=== PATIENT | male | born 1970 | race Hispanic/Latino ===

== ENCOUNTER 2016-09-15 06:24 | Emergency (ER) | payer SELFPAY ==
[~2016-09-15] VITALS: Ht 172.7 cm; Wt 120.5 kg
[2016-09-15 06:45] LABS: HEMATOCRIT 48.7 % (39.0-50.0); HEMOGLOBIN 16.1 g/dl (14.0-18.0); IMMATURE GRANULOCYTES 0.5 % (0.0-1.0); MEAN CELL VOLUME 94.2 fL CALC (80.0-100.0); MEAN CORPUSCULAR HGB 31.1 pG CALC (26.0-32.0); MEAN CORPUSCULAR HGB CONC 33.1 g/L CALC (32.0-36.0); NEUT# 7.13 thou/uL (1.82-7.42); RED BLOOD COUNT 5.17 mill/uL (4.70-6.10); RED CELL DISTRI WIDTH 13.3 % (11.5-15.5)
[2016-09-15] MEDS ORDERED: METFORMIN500 MG PO (06:50)
[2016-09-15 07:00] LABS: ALBUMIN 4.3 g/dL (3.2-5.0); ALKALINE PHOSPHATASE 125 u/l (38-126); ANION GAP 16 (6-22 (CALC)); BILIRUBIN, TOTAL 0.6 mg/dL (0.0-1.4); BUN 31 mg/dL (9-20); BUN/CREATININE RATIO 46 (12-20 (CALC)); CARBON DIOXIDE 23 mmol/l (22-30); CHLORIDE 104 mmol/l (95-108); CREATININE 0.7 mg/dL (0.7-1.3); GFR > 60 ML/MIN (>=60 (CALC)); GFR FOR AFR.AMER. > 60 ML/MIN (>=60 (CALC)); GLUCOSE 180 mg/dL (75-110); POTASSIUM 4.4 mmol/l (3.5-5.1); SGOT/AST 76 u/l (17-59); SGPT/ALT 109 u/l (21-72); SODIUM 138 mmol/l (137-146); TOTAL PROTEIN 7.3 g/dL (6.3-8.2)
[2016-09-15 07:01] LABS: ACT PARTIAL THROMBO TIME 26.4 SECONDS (20.0-32.5); PROTHROMBIN TIME 11.4 SECONDS (9.0-12.5)
[2016-09-15 07:12] LABS: MYOGLOBIN 188 ng/mL (0 - 121)
[2016-09-15 07:22] VITALS: BP 129/78
== END 2016-09-15 07:18 | disposition short-term general hospital (02) | DRG 282 ==
LOC: ED 06:24
PROVIDERS: Emergency Medicine
DX: I21.3 ST elevation (STEMI) myocardial infarction of unspecified site (principal); E11.9 Type 2 diabetes mellitus without complications; I25.10 Atherosclerotic heart disease of native coronary artery without angina pectoris; F17.210 Nicotine dependence, cigarettes, uncomplicated

== ENCOUNTER 2016-09-19 07:35 | Emergency (ER) | payer SELFPAY ==
[~2016-09-19] VITALS: Ht 172.7 cm; Wt 118.6 kg
[~2016-09-19 07:35] MED LIST: METFORMIN500 MG PO
[2016-09-19] MEDS ORDERED: ZESTRIL/PRINIV2.5 MG PO (07:49)
[2016-09-19] MEDS ORDERED: PLAVIX75 MG PO (07:49)
[2016-09-19] MEDS ORDERED: BUPROPION150 M4 PO (07:50)
[2016-09-19] MEDS ORDERED: LIPITOR80 M1 PO (07:50)
[2016-09-19] MEDS ORDERED: METOPROL TAR25 MG PO (07:50)
[2016-09-19 07:55] LABS: HEMATOCRIT 47.9 % (39.0-50.0); HEMOGLOBIN 16.2 g/dl (14.0-18.0); IMMATURE GRANULOCYTES 0.3 % (0.0-1.0); MEAN CELL VOLUME 93.9 fL CALC (80.0-100.0); MEAN CORPUSCULAR HGB 31.8 pG CALC (26.0-32.0); MEAN CORPUSCULAR HGB CONC 33.8 g/L CALC (32.0-36.0); NEUT# 6.59 thou/uL (1.82-7.42); RED BLOOD COUNT 5.1 mill/uL (4.70-6.10); RED CELL DISTRI WIDTH 12.9 % (11.5-15.5)
[2016-09-19 08:10] LABS: INTERNATIONAL NORMALIZED RATIO 1.1 RATIO (0.7-1.3); PROTHROMBIN TIME 11.5 SECONDS (9.0-12.5)
[2016-09-19 08:14] LABS: ALBUMIN 4.4 g/dL (3.2-5.0); ALKALINE PHOSPHATASE 130 u/l (38-126); ANION GAP 14 (6-22 (CALC)); BILIRUBIN, TOTAL 0.8 mg/dL (0.0-1.4); BUN 19 mg/dL (9-20); BUN/CREATININE RATIO 32 (12-20 (CALC)); CALCIUM 9.4 mg/dL (8.4-10.2); CARBON DIOXIDE 25 mmol/l (22-30); CHLORIDE 105 mmol/l (95-108); CREATININE 0.6 mg/dL (0.7-1.3); GFR > 60 ML/MIN (>=60 (CALC)); GFR FOR AFR.AMER. > 60 ML/MIN (>=60 (CALC)); GLUCOSE 152 mg/dL (75-110); POTASSIUM 4.3 mmol/l (3.5-5.1); SGOT/AST 55 u/l (17-59); SGPT/ALT 114 u/l (21-72); SODIUM 140 mmol/l (137-146); TOTAL PROTEIN 7.8 g/dL (6.3-8.2)
[2016-09-19 08:26] LABS: MYOGLOBIN 38 ng/mL (0 - 121)
[2016-09-19 16:30] VITALS: BP 120/63
== END 2016-09-19 16:32 | disposition short-term general hospital (02) | DRG 282 ==
LOC: ED 07:35 → ED-I 12:59 → ED 16:32
PROVIDERS: Emergency Medicine
DX: R07.9 Chest pain, unspecified (principal); I21.19 ST elevation (STEMI) myocardial infarction involving other coronary artery of inferior wall; E11.9 Type 2 diabetes mellitus without complications; R74.8 Abnormal levels of other serum enzymes; F17.210 Nicotine dependence, cigarettes, uncomplicated; Z95.5 Presence of coronary angioplasty implant and graft
CPT/HCPCS: J1650

== ENCOUNTER 2016-12-06 14:45 | Emergency (ER) | payer SELFPAY ==
[~2016-12-06] VITALS: Ht 172.7 cm; Wt 118.0 kg
[~2016-12-06 14:45] MED LIST changes: +BUPROPION150 M4 PO; +LIPITOR80 M1 PO; +METOPROL TAR25 MG PO; +PLAVIX75 MG PO; +ZESTRIL/PRINIV2.5 MG PO
[2016-12-06] MEDS ORDERED: MOTRIN800 MG PO (17:57)
[2016-12-06] MEDS ORDERED: TRAMADOL HYDROC50 MG PO (17:57)
[2016-12-06 18:27] VITALS: BP 150/97
== END 2016-12-06 18:28 | disposition home or self-care (01) | DRG 563 ==
LOC: ED 14:45
PROC: 0RSJXZZ Reposition Right Shoulder Joint, External Approach (ICD-10-PCS; principal; 2016-12-06)
DX: S43.084A Other dislocation of right shoulder joint, initial encounter (principal); E11.9 Type 2 diabetes mellitus without complications; I25.2 Old myocardial infarction; F17.210 Nicotine dependence, cigarettes, uncomplicated; W50.0XXA Accidental hit or strike by another person, initial encounter; Y93.89 Activity, other specified; Y92.009 Unspecified place in unspecified non-institutional (private) residence as the place of occurrence of the external cause; Z95.5 Presence of coronary angioplasty implant and graft

== ENCOUNTER 2017-01-02 08:09 | Emergency (ER) | payer SELFPAY ==
[~2017-01-02] VITALS: Ht 172.7 cm; Wt 118.0 kg
[~2017-01-02 08:09] MED LIST changes: +MOTRIN800 MG PO; +TRAMADOL HYDROC50 MG PO
[2017-01-02] MEDS ORDERED: MOTRIN400 MG PO (11:31)
[2017-01-02] MEDS ORDERED: HYDROCO/APAP1 TA9 PO (11:31)
[2017-01-02 11:46] VITALS: BP 140/85
== END 2017-01-02 12:06 | disposition home or self-care (01) | DRG 563 ==
LOC: ED 08:09
PROC: 0RSJXZZ Reposition Right Shoulder Joint, External Approach (ICD-10-PCS; principal; 2017-01-02)
DX: S43.014A Anterior dislocation of right humerus, initial encounter (principal); M25.511 Pain in right shoulder; X58.XXXA Exposure to other specified factors, initial encounter; Y93.84 Activity, sleeping; Y92.003 Bedroom of unspecified non-institutional (private) residence as the place of occurrence of the external cause

== ENCOUNTER 2017-03-24 11:00 | Emergency (ER) | payer SELFPAY ==
[~2017-03-24] VITALS: Ht 172.7 cm; Wt 136.0 kg
[~2017-03-24 11:00] MED LIST changes: +HYDROCO/APAP1 TA9 PO; +MOTRIN400 MG PO
[2017-03-24] MEDS ORDERED: LORTAB 5/3255 MG PO (12:33)
[2017-03-24] MEDS ORDERED: EC-NAPROSYN500 MG PO (12:33)
[2017-03-24 13:00] VITALS: BP 174/108
== END 2017-03-24 13:11 | disposition home or self-care (01) | DRG 563 ==
LOC: ED 11:00
PROC: 0RSJXZZ Reposition Right Shoulder Joint, External Approach (ICD-10-PCS; principal; 2017-03-24)
DX: S43.014A Anterior dislocation of right humerus, initial encounter (principal); X58.XXXA Exposure to other specified factors, initial encounter; Y93.84 Activity, sleeping; Y92.003 Bedroom of unspecified non-institutional (private) residence as the place of occurrence of the external cause

== ENCOUNTER 2017-04-10 12:05 | Observation (INO) | payer SELFPAY ==
[~2017-04-10] VITALS: Ht 172.7 cm; Wt 127.0 kg
[~2017-04-10 12:05] MED LIST changes: +EC-NAPROSYN500 MG PO; +LORTAB 5/3255 MG PO
--- NOTE | 2017-04-10 12:15 | NUR ---
PT BROUGHT STRAIGHT BACK. REFUSED WC, AMBULATED WITH A STEADY GAIT. PT CHANGED INTO GOWN. EKG COMPLETE.
[2017-04-10 12:42] LABS: HEMATOCRIT 52.1 % (39.0-50.0); HEMOGLOBIN 17.2 g/dl (14.0-18.0); IMMATURE GRANULOCYTES 0.3 % (0.0-1.0); MEAN CELL VOLUME 90.8 fL CALC (80.0-100.0); NEUT# 5.6 thou/uL (1.82-7.42); RED BLOOD COUNT 5.74 mill/uL (4.70-6.10); RED CELL DISTRI WIDTH 13.4 % (11.5-15.5)
--- NOTE | 2017-04-10 12:43 | NUR ---
PT RESTING QUIETLY ON STRETCHER, REMOTE WITHIN REACH, WARM BLANKET GIVEN
[2017-04-10 12:52] LABS: ANION GAP 16 (6-22 (CALC)); BUN 15 mg/dL (9-20); BUN/CREATININE RATIO 27 (12-20 (CALC)); CALCIUM 9.8 mg/dL (8.4-10.2); CARBON DIOXIDE 23 mmol/l (22-30); CHLORIDE 104 mmol/l (95-108); CREATININE 0.6 mg/dL (0.7-1.3); GFR > 60 ML/MIN (>=60 (CALC)); GFR FOR AFR.AMER. > 60 ML/MIN (>=60 (CALC)); GLUCOSE 222 mg/dL (75-110); POTASSIUM 4.4 mmol/l (3.5-5.1); SODIUM 138 mmol/l (137-146)
--- NOTE | 2017-04-10 13:45 | NUR ---
ADVISED OF WAIT TIME FOR LAB RESULTS
--- NOTE | 2017-04-10 14:27 | NUR ---
PT STATES HIS CHEST PAIN COMES AND GOES. PAIN SCALE OF A 2 AT THIS TIME. RESTING ON STRETCHER WITH EYES CLOSED
--- NOTE | 2017-04-10 15:08 | NUR ---
PT SLEEPING, EASILY AWAKENED, DENIES ANY CHEST PAIN.
--- NOTE | 2017-04-10 16:05 | NUR ---
REPORT RECEIVED FROM ANNMARIE IN ED, PT ARRIVED ON UNIT VIA STRETCHER @ 1600, ALERT AND ORIENTED X 3, ORIENTED TO ROOM AND CALL JACOB FRANCO "LITTLE BIT" MIDSTERNAL PAIN, TELE MONITOR IN PLACE, WILL CONTINUE TO MONITOR.
--- NOTE | 2017-04-10 16:08 | NUR ---
PT TRANSFERRED TO MED SURG FLOOR WITH TELEMETRY
--- NOTE | 2017-04-10 17:55 | NUR ---
PT REPORTED HE DISLOCATED LEFT SHOULDER ON MARCH 20 OR ADN IT FIXED IN ED HERE, HAS PAIN IN LEFT SHOULDER TO NECK SINCE INCIDENT.
[2017-04-10 18:10] VITALS: BP 112/69
--- NOTE | 2017-04-10 18:21 | NUR ---
PT NOW C/O DIZZINESS AND LEFT FACE NUMBNESS, DR ZIMMER NOTIFIED AND GAVE ORDERS. BLOOD GLUCOSE LEVEL MEASURED = 186. EARLIER C/O PAIN TO LEFT SHOULDER AND NAPE BUT DENIES PAIN AT THIS TIME, WILL CONTINUE TO MONITOR, FALL RISK BAND APPLIED, EDUCATED ON FALL PRECAUTION/PREVENTION AND STATED UNDERSTANDING. CALL FRANCO IN REACH.
--- NOTE | 2017-04-10 19:00 | NUR ---
RECEIVED CHANGE OF SHIFT REPORT FROM LEONOR WILLIAMSON. PATIENT LYING I BED AND APPEARS NOT TO BE IN ANY APPARENT ACUTE DISTRESS. REPORTS SOME NUMBNESS TO LT SIDE OF FACE, MD AWARE. MRI ORDERED. WILL CONFINUE TO MONITOR.
--- NOTE | 2017-04-11 | NUR ---
PATIENT RESTING QUIETLY IN BED AND APPEARS BE ASLEEP. RESP EVEN AND NON-LABORED.
[2017-04-11 00:17] VITALS: BP 107/61
--- NOTE | 2017-04-11 04:00 | NUR ---
NO APPARENT ACUTE CHANGES NOTED IN PT'S CONDITION.
[2017-04-11 05:19] VITALS: BP 115/75
[2017-04-11 05:43] LABS: HEMATOCRIT 49.9 % (39.0-50.0); HEMOGLOBIN 16.2 g/dl (14.0-18.0); IMMATURE GRANULOCYTES 0.3 % (0.0-1.0); MEAN CELL VOLUME 92.1 fL CALC (80.0-100.0); MEAN CORPUSCULAR HGB 29.9 pG CALC (26.0-32.0); MEAN CORPUSCULAR HGB CONC 32.5 g/L CALC (32.0-36.0); NEUT# 5.05 thou/uL (1.82-7.42); RED BLOOD COUNT 5.42 mill/uL (4.70-6.10); RED CELL DISTRI WIDTH 13.6 % (11.5-15.5)
[2017-04-11 05:55] LABS: MAGNESIUM 1.8 mg/dL (1.6-2.3)
[2017-04-11 05:58] LABS: ANION GAP 14 (6-22 (CALC)); BUN 17 mg/dL (9-20); BUN/CREATININE RATIO 26 (12-20 (CALC)); CALCIUM 9.4 mg/dL (8.4-10.2); CALCULATED LDLCHOLESTEROL 115 mg/dL (62-129 (CALC)); CARBON DIOXIDE 23 mmol/l (22-30); CHLORIDE 104 mmol/l (95-108); CHOLESTEROL HDL RATIO 5.5 (<4.4 (CALC)); CREATININE 0.6 mg/dL (0.7-1.3); GFR > 60 ML/MIN (>=60 (CALC)); GFR FOR AFR.AMER. > 60 ML/MIN (>=60 (CALC)); GLUCOSE 163 mg/dL (75-110); HDL CHOLESTEROL 31 mg/dL (>=40); POTASSIUM 4.7 mmol/l (3.5-5.1); SODIUM 136 mmol/l (137-146); TOTAL CHOLESTEROL 167 mg/dl (0-199); TOTAL TRIGLYCERIDES 110 mg/dl (30-149); VLDL CHOLESTROL 22 mg/dl (5-56 (CALC))
[2017-04-11 07:35] VITALS: BP 103/63
--- NOTE | 2017-04-11 07:35 | NUR ---
PT.UPRIGHT IN BED W/BREAKFAST TRAY ON BEDSIDE TABLE, HAS NOT STARTED EATING YET AT THIS TIME. V/S ASSESSED AND PT.ASSESSMENT COMPLETED. C/O MILD 2/10 PAIN IN EPI-GASTRIC AREA ONLY WHEN DEEP BREATHING. LUNG SOUNDS ARE CLEAR, NO ABD.TENDERNESS REPORTED, BM REPORTED YESTERDAY, NEURO'S INTACT. DENIES ANY OTHER NEEDS. CALL LIGHT W/IN REACH AND PT.INSTRUCTED TO CALL FOR ASSISTANCE NEEDED
[2017-04-11 12:23] VITALS: BP 90/50
--- NOTE | 2017-04-11 16:00 | NUR ---
pt c/o to pharmacy intake coordinator, that he was "dizzy,hot,and numb on left face". temp was checked at this time 98.3. informed elaine ross
[2017-04-11 16:15] VITALS: BP 109/68
--- NOTE | 2017-04-11 16:18 | NUR ---
Visted pt on pharmacy rounds. Pt understands the purpose of current medications. During our talk, pt felt dizzy and the left side of his face was numb. He also described feeling very hot. A nurse was summoned and took his temperature. He was afebrile at 98.3 degrees (F). The pt stated the numbness was localized to the face, with a pain behind his left ear. He denied numbness in the extremities. Pt's nurse has been alerted and pt had no further questions or concerns regarding current therapy.
[2017-04-11 18:00] VITALS: BP 109/65
--- NOTE | 2017-04-11 18:02 | NUR ---
PT STATES" THE NUMBNESS RESOLVED FAST IT CAME. ". INQUIRED IF HE WAS GOING HOME TODAY, EXPLAINED DUE TO C/O NUMBNESS THEN THEY WILL NEED TO DO ANOTHER TEST.,
--- NOTE | 2017-04-11 19:30 | NUR ---
PATIENT RESTING IN BED AT THIS TIME-AWAKE ALERT AND ORIENTEDX3. PATIENT STATES THAT HE HAS SLIGHT "NUMBNESS TO THE LEFT SIDE OF HIS FACE". ALSO SLIGHT "HEARTBURN" AFTER EATING DINNER. PATIENT WITH TELE MONITORING DEVICE IN PLACE. DENIES ANY DIFFICULTY WITH URINATION AND STATES THAT HE HAD BM TODAY. ABD IS DISTENDED WITH BS+. LUNGS ARE CLEAR. SAFETY PRECAUTIONS REINFORCED.CALL LIGHT IN REACH. WILL CONT TO MONITOR.
--- NOTE | 2017-04-12 | NUR ---
PATIENT APPEARS SLEEPING AT THIS TIME WITH EYES CLOSED. CALL LIGHT IN REACH. WILL CONT TO MONITOR.
[2017-04-12 00:30] VITALS: BP 105/65
--- NOTE | 2017-04-12 04:00 | NUR ---
APPEARS SLEEPING AT THIS TIME WITH EYES CLOSED. CALL LIGHT IN REACH. WILL CONT TO MONITOR.
[2017-04-12 05:20] VITALS: BP 104/65
[2017-04-12 06:20] LABS: ANION GAP 13 (6-22 (CALC)); BUN 18 mg/dL (9-20); BUN/CREATININE RATIO 25 (12-20 (CALC)); CALCIUM 9.6 mg/dL (8.4-10.2); CARBON DIOXIDE 27 mmol/l (22-30); CHLORIDE 104 mmol/l (95-108); CREATININE 0.7 mg/dL (0.7-1.3); GFR > 60 ML/MIN (>=60 (CALC)); GFR FOR AFR.AMER. > 60 ML/MIN (>=60 (CALC)); GLUCOSE 154 mg/dL (75-110); MAGNESIUM 1.9 mg/dL (1.6-2.3); POTASSIUM 4.8 mmol/l (3.5-5.1); SODIUM 139 mmol/l (137-146)
--- NOTE | 2017-04-12 07:11 | NUR ---
REPORT RECEIVED FROM LEONOR LEARY. PT IN SHOWER AT THIS TIME.
[2017-04-12 07:38] VITALS: BP 123/71
--- NOTE | 2017-04-12 07:44 | NUR ---
PT OUT OF SHOWER. IN CHAIR AT BEDSIDE. REPORTS MILD DIZZINESS. FALL PRECAUTIONS REINFORCED. PT EDUCATED ON GOAL BLOOD SUGAR LEVELS AND DIABETIC DIET. PLAN OF CARE REVIEWED. CALL LIGHT REVIEWED AND IN REACH. PT STATES UNDERSTANDING. PT DENIES PAIN.
--- NOTE | 2017-04-12 08:06 | NUR ---
NEW MEDICATIONS, PLAVIX AND LISINOPRIL REVIEWED WITH PT.
[2017-04-12 11:10] VITALS: BP 102/60
[2017-04-12] MEDS ORDERED: PLAVIX75 MG PO (11:49)
[2017-04-12] MEDS ORDERED: METFORMIN HCL1000 MG PO (11:49)
[2017-04-12] MEDS ORDERED: ZESTRIL/PRIN5 MG/TA1 PO (11:49)
[2017-04-12] MEDS ORDERED: ASPIRINCHW 81MG PO (11:49)
--- NOTE | 2017-04-12 13:10 | NUR ---
Discharge instructions given. Patient verbalizes understanding of same. Discharged in stable condition via Ambulatory to Home with *Other. All belongings sent with pt.
== END 2017-04-12 13:10 | disposition home or self-care (01) | DRG 313 ==
LOC: ED 12:05 → ED-I 14:48 → ED 15:10 → MS2 15:11
PROVIDERS: Family Medicine; Nurse Practitioner Family; ADMIT Internal Medicine; ATTEND Internal Medicine
PROC: 3E0234Z Introduction of Serum, Toxoid and Vaccine into Muscle, Percutaneous Approach (ICD-10-PCS; principal; 2017-04-12)
DX: R07.9 Chest pain, unspecified (principal); I25.10 Atherosclerotic heart disease of native coronary artery without angina pectoris; Z68.41 Body mass index [BMI] 40.0-44.9, adult; I10 Essential (primary) hypertension; E11.9 Type 2 diabetes mellitus without complications; E78.5 Hyperlipidemia, unspecified; F17.210 Nicotine dependence, cigarettes, uncomplicated; R20.0 Anesthesia of skin; E66.9 Obesity, unspecified; I25.2 Old myocardial infarction; Z95.5 Presence of coronary angioplasty implant and graft; Z91.14 Patient's other noncompliance with medication regimen; Z91.11 Patient's noncompliance with dietary regimen; M25.511 Pain in right shoulder; Z23 Encounter for immunization
CPT/HCPCS: G0378